=== PATIENT | male | born 1985 | race Two or more races ===

== ENCOUNTER 2016-12-17 13:11 | Emergency (ER) | payer OTHER ==
[~2016-12-17] VITALS: Wt 65.9 kg
--- NOTE | 2016-12-17 14:34 | ERD ---
ER Documentation Chief Complaint Chief Complaint finger, back, and "gas problem" HPI 31y/o male patient with difficult medical history,presents to the emergency department with [id number] c/o 3 years with mild, intermittent lower back pain, dull, 5/10. Patient recently immigrated from [facility] and has not had primary care in a long time. The patient is also complaining of bilateral hand rash, pruritic, for approximately 2 years. He has not tried any medications for the rash. And he is also complaining of constant abdominal bloating associated with flatulence for the last 5 months since he came from his country. Denies abdominal pain, fever, chills, no nausea, no vomiting, no diarrhea. ROS SYSTEMIC symptoms: no fever, chills, no night sweats, no weight loss EYE symptoms: No blurred vision, no eye discharge OTOLARYNGEAL symptoms: No hearing loss. No ear pain, no sore throat CARDIOVASCULAR symptoms: No chest pain or discomfort, no palpitations. PULMONARY symptoms: No dyspnea, no cough, no wheezing. GASTROINTESTINAL symptoms: Per HPI MUSCULOSKELETAL symptoms: Intermittent back pain. NEUROLOGY symptoms: No confusion, no syncope, no numbness or tingling. SKIN HPI Medications Home Meds Active Scripts Baclofen* (Baclofen*) 10 Mg Tablet, 10 MG PO TID for MUSCLE SPASMS, #30 TAB Prov:DAVE NOWAK MD 12/17/16 Ranitidine Hcl* (Ranitidine Hcl*) 150 Mg Tablet, 150 MG PO Q12, #60 TAB Prov:DAVE NOWAK MD 12/17/16 Triamcinolone Acetonide (Triamcinolone Acetonide) 0.5% - 15 Gm Oint..gm., 1 APPLIC TOP BID for 14 Days, #80 GM 2 Refills Prov:DAVE NOWAK MD 12/17/16 PMhx/Soc Medical and Surgical Hx: pt denies Medical Hx, pt denies Surgical Hx Hx Alcohol Use: No Hx Substance Use: No Hx Tobacco Use: No Physical Exam Vitals Vital Signs Date Time Temp Pulse Resp B/P Pulse Ox O2 Delivery O2 Flow Rate FiO2 12/17/16 13:14 97.1 78 20 115/61 99 Physical Exam Patient is in no acute distress, vital signs stable. Alert and fully oriented. EYES: PERRLA, EOMI, Sclera and conjunctiva appear normal. EARS: Canals clear, tympanic membranes WNL THROAT: Normal oropharynx. NECK: Supple, No lymphadenopathy. Full ROM without pain or tenderness. HEART: RRR, no rubs, murmurs, clicks or gallops. LUNGS: Clear to auscultation. ABDOMEN: Soft, non-tender without masses or hepatosplenomegaly. EXTREMITIES: No edema bilaterally. MUSC: Full ROM, no deformity, normal back exam Skin: Hands with bilateral erythematous plaques located predominantly on the second digits, with surrounding erythema and mild scaling no evidence of infection Procedures/MDM 31y/o male patient who is a healthy, presents to the ED c/o multiple medical problems for more than 2 years. Vital signs stable, Physical exam unremarkable except for bilateral hand rash nonpruritic, nonpainful. Differential diagnosis include but not limited to: Contact/autoimmune dermatitis, psoriasis, impetigo. Low suspicion for cellulitis or abscess Physical examination and clinical presentation consistent most likely with contact dermatitis, back muscle spasm and flatulence. During the ED course the patient remained stable no new complaints. Clinical impression discussed with patient who agrees with management. The patient is stable to be treated outpatient and will be discharged home with a Rx for triamcinolone, ranitidine and baclofen Side effects of prescribed muscle relaxants (drowsiness, habituation) were reviewed. If symptoms persist, worsen or new symptoms develop, then patient is instructed to follow-up with the primary care provider. If the patient is unable to see the primary care provider, then return to the ED immediately. Departure Diagnosis: Primary Impression: Contact dermatitis Additional Impressions: Back muscle spasm Flatulence Condition: Stable Additional Instructions: Thank you very much for allowing us to participate in your care. Your health and safety is our top priority at [facility]. Have prescriptions filled and follow precisely the directions on the label. Follow-up with primary care provider during the next 4 days and bring all the information and medications prescribed. If illness has not improved in 2 days, then make an appointment with primary care provider. If the provider is unavailable, return to the Emergency Department immediately. DAVE NOWAK MD Dec 17, 2016 14:34 If illness has not improved in 2 days, then make an appointment with primary care provider. If the provider is unavailable, return to the Emergency Department immediately. DAVE NOWAK MD Dec 17, 2016 14:34
[2016-12-17] MEDS ORDERED: BACL10TA PO (14:40)
[2016-12-17] MEDS ORDERED: RANI150T5 PO (14:40)
[2016-12-17] MEDS ORDERED: TRIA15OI9 TOP (14:40)
== END 2016-12-17 15:00 | disposition home or self-care (01) ==
LOC: FTE 13:11
DX: L25.9 Unspecified contact dermatitis, unspecified cause (principal); M62.830 Muscle spasm of back; R14.3 Flatulence
CPT/HCPCS: 99284